=== PATIENT | female | born 1935 | race Caucasian/White ===

== ENCOUNTER 2021-09-08 11:06 | Emergency (ER) | payer SELFPAY ==
[2021-09-08] MEDS ORDERED: ACETAMINOPHEN 325 MG TABLET (FP) PO ONE (11:27)
[2021-09-08 11:38] VITALS: BMI 27.3
[2021-09-08] MEDS ORDERED: ACETAMINOPHEN 325 MG TABLET (FP) ONE (11:43)
[2021-09-08 12:08] LABS: EPITHELIAL CELLS FEW /hpf
[2021-09-08 15:02] LABS: HEMATOCRIT 37.5 % (32.4-45.2); HEMOGLOBIN 12.9 G/dL (10.7-15.3); MCHC 34.3 g/dl (32.0-36.0); MEAN CELL VOLUME 87.5 fl (80-96); MEAN PLT VOLUME 7.1 fl (7.5-11.1); PLATELET COUNT 405.8 10^3/uL (134-434); RBC 4.29 10^6/uL (3.60-5.2); RDW 16.3 % (11.6-15.6); WHITE BLOOD COUNT 12.2 10^3/uL (4.0-10.8)
[2021-09-08 15:22] LABS: BILIRUBIN,TOTAL 0.8 mg/dl (0.2-1); CALCIUM 8.3 mg/dl (8.5-10); CREATININE 0.7 mg/dl (0.55-1.3); TOT PROT 5.9 g/dl (6.4-8.2)
[2021-09-08 16:23] VITALS: BP 105/58; PULSE 67; TEMP 99.7
[2021-09-08 16:25] LABS: PLATELET ESTIMATE SLT INCREASE
[2021-09-08] MEDS ORDERED: SODIUM CHLORIDE 0.9% 1000 ML INFUS.BAG IV ONE (16:43)
[2021-09-08] MEDS ORDERED: DOXYCYCLINE HYCLATE 100 MG CAPSULE PO ONE ×2 (17:25→17:33)
[2021-09-09 14:09] LABS: SARS-CoV-2 NAA Not Detected (Not Detected)
== END 2021-09-08 17:44 | disposition home or self-care (01) ==
LOC: FER 11:06
DX: R50.9 Fever, unspecified (principal); R05.1 Acute cough
CPT/HCPCS: 36415; 70450-TC; 71045-TC-FY; 71250-TC; 80053; 81003; 81015; 85025; 87086; 87804; 99285-25; C9803-CS; U0003; U0005